=== PATIENT | female | born 1990 | race Caucasian/White ===

== ENCOUNTER 2019-05-21 17:58 | Emergency (ER) | payer BC ==
[2019-05-21] MEDS ORDERED: Sodium Chloride 0.9% 10 ML Syringe FLUSH PRN (19:30)
--- NOTE | 2019-05-21 19:47 | EDM.PDOC ---
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 Patient is approximately 8 weeks with her first . She states about 3 days ago she started having some brownish discharge that has been gradually increasing in amount and transitioning to a bright red color. She states that around 4:00 this afternoon, she had a gush of large blood clots and blood that soaked through her clothing. Patient states she was originally scheduled for a first OB appointment with Dr. Ruano on 02 June, however they have moved that up to May 25 due to her spotting. When she spoke to the clinic today to change her appointment they recommended that she come to the ER if the bleeding should increase. She has some mild cramping that she describes as similar to "light period cramps ". States that she normally has fairly significant cramping with her periods and that these cramps are not as severe . - Related Data Allergies Allergy/AdvReac Type Severity Reaction Status Date / Time No Known Allergies Allergy Verified 05/21/19 18:23 Home Meds: Home Meds Acetaminophen/oxyCODONE [Percocet 325-5 MG] 1 each PO Q4H PRN #10 tab 05/21/19 [ Rx] Past Medical History - Past Health History Medical/Surgical History: Denies Medical/Surgical History ED ROS GENERAL - Review of Systems Review Of Systems: Comprehensive ROS is negative, except as noted in HPI. ED EXAM - Physical Exam Exam: See Below Exam Limited By: No Limitations General Appearance: Alert, WD/WN, No Apparent Distress Respiratory/Chest: No Respiratory Distress, Lungs Clear, Normal Breath Sounds, No Accessory Muscle Use, Chest Non-Tender Cardiovascular: Normal Peripheral Pulses, Regular Rate, Rhythm, No Edema, No Gallop, No JVD, No Murmur, No Rub GI/Abdominal Exam: Normal Bowel Sounds, Soft, Non-Tender, No Organomegaly, No Distention, No Abnormal Bruit, No Mass, Pelvis Stable (Female) Exam: Normal External Exam, Cervical Dilatation (0.5 cm), Cervical Discharge (Clear mucous and bloody) Neurological: Alert, Oriented, CN II-XII Intact, Normal Cognition, Normal Gait, Normal Reflexes, No Motor/Sensory Deficits Psychiatric: Normal Affect, Normal Mood Skin Exam: Warm, Dry, Intact, Normal Color, No Rash Course - Vital Signs Last Recorded V/S: Last Vital Signs Temp 98.4 F 05/21/19 18:19 Pulse 62 05/21/19 18:19 Resp 18 05/21/19 18:19 BP 111/62 05/21/19 18:19 Pulse Ox 100 05/21/19 18:19 - Orders/Labs/Meds Orders: Active Orders 24 hr Category Date Time Status Pelvic Exam, Set Up [RC] ASDIRECTED Care 05/21/19 20:46 Active Peripheral IV Care [RC] . DIRECTED Care 05/21/19 19:30 Active Peripheral IV Insertion Adult [OM.PC] Stat Oth 05/21/19 19:30 Ordered Labs: Laboratory Tests 05/21/19 05/21/19 05/21/19 Range/Units 20:02 20:02 20:02 WBC 8.76 (3.98-10.04) K/mm3 RBC 3.93 L (3.98-5.22) M/mm3 Hgb 12.3 (11.2-15.7) gm/dl Hct 36.9 (34.1-44.9) % MCV 93.9 (79.4-94.8) fl MCH 31.3 (25.6-32.2) pg MCHC 33.3 (32.2-35.5) g/dl RDW Std Deviation 39.4 (36.4-46.3) fL Plt Count 264 (182-369) K/mm3 MPV 10.6 (9.4-12.3) fl Neut % (Auto) 70.9 (34.0-71.1) % Lymph % (Auto) 22.3 (19.3-51.7) % Alfalfa % (Auto) 5.0 (4.7-12.5) % Eos % (Auto) 1.4 (0.7-5.8) Baso % (Auto) 0.3 (0.1-1.2) % Neut # (Auto) 6.21 H (1.56-6.13) K/mm3 Lymph # (Auto) 1.95 (1.18-3.74) K/mm3 Alfalfa # (Auto) 0.44 H (0.24-0.36) K/mm3 Eos # (Auto) 0.12 (0.04-0.36) K/mm3 Baso # (Auto) 0.03 (0.01-0.08) K/mm3 Sodium 139 (136-145) mEq/L Potassium 3.7 (3.5-5.1) mEq/L Chloride 103 (98-107) mEq/L Carbon Dioxide 25 (21-32) mEq/L Anion Gap 14.7 (5-15) BUN 15 (7-18) mg/dL Creatinine 0.7 (0.55-1.02) mg/dL Est Cr Clr Drug Dosing 107.67 mL/min Estimated GFR (MDRD) > 60 (>60) mL/min BUN/Creatinine Ratio 21.4 H (14-18) Glucose 90 (74-106) mg/dL Calcium 9.1 (8.5-10.1) mg/dL Total Bilirubin 0.2 (0.2-1.0) mg/dL AST 14 L (15-37) U/L ALT 25 (14-59) U/L Alkaline Phosphatase 56 (46-116) U/L Total Protein 7.9 (6.4-8.2) g/dl Albumin 3.9 (3.4-5.0) g/dl Globulin 4.0 gm/dL Albumin/Globulin Ratio 1.0 (1-2) HCG, Quant 11193.0 mIU/mL Urine Color (Yellow) Urine Appearance (Clear) Urine pH (5.0-8.0) Ur Specific Goode (1.005-1.030) Urine Protein (Negative) Urine Glucose (UA) (Negative) Urine Ketones (Negative) Urine Occult Blood (Negative) Urine Nitrite (Negative) Urine Bilirubin (Negative) Urine Urobilinogen (0.2-1.0) Ur Leukocyte Esterase (Negative) Urine RBC (0-5) /hpf Urine WBC (0-5) /hpf Ur Squamous Epith Cells (0-5) /hpf Urine Bacteria (FEW) /hpf Urine Mucus (FEW) /hpf Blood Type 05/21/19 05/21/19 Range/Units 20:02 20:45 WBC (3.98-10.04) K/mm3 RBC (3.98-5.22) M/mm3 Hgb (11.2-15.7) gm/dl Hct (34.1-44.9) % MCV (79.4-94.8) fl MCH (25.6-32.2) pg MCHC (32.2-35.5) g/dl RDW Std Deviation (36.4-46.3) fL Plt Count (182-369) K/mm3 MPV (9.4-12.3) fl Neut % (Auto) (34.0-71.1) % Lymph % (Auto) (19.3-51.7) % Alfalfa % (Auto) (4.7-12.5) % Eos % (Auto) (0.7-5.8) Baso % (Auto) (0.1-1.2) % Neut # (Auto) (1.56-6.13) K/mm3 Lymph # (Auto) (1.18-3.74) K/mm3 Alfalfa # (Auto) (0.24-0.36) K/mm3 Eos # (Auto) (0.04-0.36) K/mm3 Baso # (Auto) (0.01-0.08) K/mm3 Sodium (136-145) mEq/L Potassium (3.5-5.1) mEq/L Chloride (98-107) mEq/L Carbon Dioxide (21-32) mEq/L Anion Gap (5-15) BUN (7-18) mg/dL Creatinine (0.55-1.02) mg/dL Est Cr Clr Drug Dosing mL/min Estimated GFR (MDRD) (>60) mL/min BUN/Creatinine Ratio (14-18) Glucose (74-106) mg/dL Calcium (8.5-10.1) mg/dL Total Bilirubin (0.2-1.0) mg/dL AST (15-37) U/L ALT (14-59) U/L Alkaline Phosphatase (46-116) U/L Total Protein (6.4-8.2) g/dl Albumin (3.4-5.0) g/dl Globulin gm/dL Albumin/Globulin Ratio (1-2) HCG, Quant mIU/mL Urine Color Yellow (Yellow) Urine Appearance Slt cloudy H (Clear) Urine pH 5.5 (5.0-8.0) Ur Specific Goode > or = 1.030 (1.005-1.030) Urine Protein Negative (Negative) Urine Glucose (UA) Negative (Negative) Urine Ketones Negative (Negative) Urine Occult Blood 3+ H (Negative) Urine Nitrite Negative (Negative) Urine Bilirubin Negative (Negative) Urine Urobilinogen 0.2 (0.2-1.0) Ur Leukocyte Esterase Negative (Negative) Urine RBC 40-50 H (0-5) /hpf Urine WBC 0-5 (0-5) /hpf Ur Squamous Epith Cells 5-10 H (0-5) /hpf Urine Bacteria Occasional (FEW) /hpf Urine Mucus Few (FEW) /hpf Blood Type B POSITIVE Meds: Medications Discontinued Medications Generic Name Dose Route Start Last Admin Trade Name Freq PRN Reason Stop Dose Admin Sodium Chloride 10 ml 05/21/19 19:30 Saline Flush FLUSH ASDIRECTED PRN Keep Vein Open - Re-Assessments/Exams Free Text/Narrative Re-Assessment/Exam: 05/21/19 21:59 Ultrasound showed an empty gestational sac with a small amount of blood within the endocervical canal. Findings are felt to be compatible with a nonviable . Pelvic exam on the patient did show a slightly dilated cervix with bloody/mucousy discharge from the os. Patient is B+ so RhoGam is not indicated. Discussed these findings with the patient and that she is likely miscarrying. Recommended that she take ibuprofen every 6 hours for the next couple days. I will write her prescription for Percocet that she can fill if she needs it. Educated her to return to the ER if she is saturating a pad an hour for more than 2 hours. She does have an appointment scheduled with Dr. Ruano on Saturday morning. I did recommend that she keep that as a follow-up appointment. Discharge instructions as documented. Departure - Departure Time of Disposition: 22:02 Disposition: Home, Self-Care 01 Condition: Fair Clinical Impression: Incomplete - Discharge Information *PRESCRIPTION DRUG MONITORING PROGRAM REVIEWED*: Yes *COPY OF PRESCRIPTION DRUG MONITORING REPORT IN PATIENT JACOB: No Prescriptions: Acetaminophen/oxyCODONE [Percocet 325-5 MG] 1 each PO Q4H PRN #10 tab PRN Reason: Pain Instructions: Miscarriage, [id number] Referrals: Joceline Lebron PA-C [Primary Care Provider] - Sneha Ruano MD [Physician] - Forms: ED Department Discharge Additional Instructions: You were seen in the emergency department today for vaginal bleeding and passing blood clots. Your work-up included blood work, urinalysis, and a transvaginal ultrasound. Unfortunately the findings of these tests were consistent with that of a miscarriage. As we discussed, I would recommend that you take ibuprofen 400 mg every 6 hours for the next couple days as this will help reduce the cramping as well as the bleeding. You will likely continue to bleed for the next few days and the cramping may worsen. If you find that you are saturating a pad an hour for more than 2 hours, I recommend that you return to the emergency department. A prescription for Percocet has been provided to you. You may fill this if needed for additional pain relief beyond that provided by the ibuprofen. I recommend that you keep your appointment on Saturday with Dr. Ruano for a follow-up. If you should develop any concerning symptoms over the weekend, please do not hesitate to return to the emergency department. Sepsis Event Note - Evaluation Sepsis Screening Result: No Definite Risk - Focused Exam Vital Signs: Vital Signs Temp Pulse Resp BP Pulse Ox 05/21/19 18:19 98.4 F 62 18 111/62 100 Date Exam was Performed: 05/21/19 Time Exam was Performed: 23:24 - My Orders Last 24 Hours: My Active Orders 05/21/19 19:30 Peripheral IV Care [RC] . DIRECTED Peripheral IV Insertion Adult [OM.PC] Stat 05/21/19 20:46 Pelvic Exam, Set Up [RC] ASDIRECTED - Assessment/Plan Last 24 Hours: My Active Orders 05/21/19 19:30 Peripheral IV Care [RC] . DIRECTED Peripheral IV Insertion Adult [OM.PC] Stat 05/21/19 20:46 Pelvic Exam, Set Up [RC] ASDIRECTED
--- NOTE | 2019-05-21 20:40 | US ---
First trimester obstetrical ultrasound: Multiple real-time images were obtained transvaginally. Comparison: No previous study. Findings: Empty gestational sac is seen. No yolk sac or pole is seen within this gestational sac. There is some ill-defined debris felt to be present within the sac. Blood is seen within the endocervical canal. Right and left ovaries appear within normal limits. Impression: 1. Empty gestational sac with a small amount of blood within the endocervical canal. Findings are felt compatible with nonviable . Diagnostic code #5 Study was dictated in [place] Standard Time
== END 2019-05-21 22:15 | disposition home or self-care (01) ==
LOC: JD.ED 17:58
DX: O03.4 Incomplete spontaneous abortion without complication (principal)
CPT/HCPCS: 36415; 76817; 76817-26; 80053; 81001; 84702; 85025; 86900; 86901; 99283; 99284-25

== ENCOUNTER 2020-03-23 05:09 | Inpatient (IN) | payer BC ==
[2020-03-23] MEDS ORDERED: Metoclopramide 10 MG/2 ML SDV IVPUSH ONE (05:20)
[2020-03-23] MEDS ORDERED: Sodium Chloride 0.9% 10 ML Syringe FLUSH PRN (05:20)
[2020-03-23] MEDS ORDERED: ceFAZolin 2 GM in Premix Bag 1 BAG IV ONE (05:20)
[2020-03-23] MEDS ORDERED: Citric Acid/Sodium Citrate Solution 30 ML Cup PO ONE (05:20)
[2020-03-23] MEDS ORDERED: Oxytocin/Lactated Ringers 10 UNIT/1,000 ML BAG IV SCH (05:30)
[2020-03-23] MEDS: Lactated Ringers 1,000 ML IV SCH ×2 (05:50→07:07)
--- NOTE | 2020-03-23 06:55 | PCM.PREANE ---
Preanesthetic Assessment - Procedure Proposed Procedure: Primary for Breech Presentation - Anesthesia/Transfusion/Family Hx Anesthesia History: No Prior Anesthesia Family History of Anesthesia Reaction: No Transfusion History: No Prior Transfusion(s) Intubation History: Unknown - Review of Systems General: No Symptoms Pulmonary: No Symptoms Cardiovascular: No Symptoms Gastrointestinal: No Symptoms (GERD) Neurological: No Symptoms (Scoliosis noted per patient) Other: Reports: None, Easy Bruising - Physical Assessment NPO Status Date: 03/22/20 NPO Status Time: 19:00 Vital Signs: Last Vital Signs Temp 36.3 C 03/23/20 05:31 Pulse 78 03/23/20 05:31 Resp 16 03/23/20 05:31 BP 107/59 L 03/23/20 05:31 Pulse Ox 96 03/23/20 05:31 Height: 1.65 m Weight: 79.379 kg ASA Class: 2 Mental Status: Alert & Oriented x3 Airway Class: Mallampati = 2 Dentition: Reports: Normal Dentition, Caries Thyro-Mental Finger Breadths: 3 Mouth Opening Finger Breadths: 3 ROM/Head Extension: Full Lungs: Clear to Auscultation, Normal Respiratory Effort Cardiovascular: Regular Rate, Regular Rhythm, No Murmurs - Lab Values: Laboratory Last Values WBC 10.06 K/mm3 (3.98-10.04) H 03/23/20 05:35 RBC 3.90 M/mm3 (3.98-5.22) L 03/23/20 05:35 Hgb 12.4 gm/dl (11.2-15.7) 03/23/20 05:35 Hct 37.0 % (34.1-44.9) 03/23/20 05:35 MCV 94.9 fl (79.4-94.8) H 03/23/20 05:35 MCH 31.8 pg (25.6-32.2) 03/23/20 05:35 MCHC 33.5 g/dl (32.2-35.5) 03/23/20 05:35 RDW Std Deviation 56.3 fL (36.4-46.3) H 03/23/20 05:35 Plt Count 201 K/mm3 (182-369) 03/23/20 05:35 MPV 11.3 fl (9.4-12.3) 03/23/20 05:35 Neut % (Auto) 79.3 % (34.0-71.1) H 03/23/20 05:35 Lymph % (Auto) 12.3 % (19.3-51.7) L 03/23/20 05:35 Blount % (Auto) 6.3 % (4.7-12.5) 03/23/20 05:35 Eos % (Auto) 1.2 (0.7-5.8) 03/23/20 05:35 Baso % (Auto) 0.2 % (0.1-1.2) 03/23/20 05:35 Neut # (Auto) 7.98 K/mm3 (1.56-6.13) H 03/23/20 05:35 Lymph # (Auto) 1.24 K/mm3 (1.18-3.74) 03/23/20 05:35 Blount # (Auto) 0.63 K/mm3 (0.24-0.36) H 03/23/20 05:35 Eos # (Auto) 0.12 K/mm3 (0.04-0.36) 03/23/20 05:35 Baso # (Auto) 0.02 K/mm3 (0.01-0.08) 03/23/20 05:35 SARS-CoV-2 RNA (VIVIAN) Negative (NEGATIVE) 03/23/20 05:43 Blood Type B POSITIVE 03/23/20 05:35 Gel Antibody Screen Negative 03/23/20 05:35 Above labs reviewed and noted and within acceptable ranges to proceed with scheduled procedure. 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: - SUBSTANCE USE Tobacco Use Status *Q: Never Tobacco User Recreational Drug Use History: No - HOME MEDS Home Medications: Home Meds Ferrous Sulfate [Iron] 325 mg PO DAILY 03/23/20 [History] Vits #93/Iron Fum/FA [ Formula Tablet] 1 tab PO DAILY 03/23/20 [History] - CURRENT (IN HOUSE) MEDS Current Meds: Current Medications Oxytocin/Lactated Ringer's (Pitocin In Lr 10 Units/1,000 Ml) 10 unit in 1,000 mls @ 100 mls/hr IV ASDIRECTED GUILLERMINA; Protocol Lactated Ringer's (Ringers, Lactated) 1,000 mls @ 125 mls/hr IV ASDIRECTED GUILLERMINA Last Admin: 03/23/20 05:50 Dose: 125 mls/hr Documented by: Sodium Chloride (Saline Flush) 10 ml FLUSH ASDIRECTED PRN PRN Reason: Keep Vein Open Discontinued Medications Citric Acid/Sodium Citrate (Bicitra Solution) 30 ml PO ONETIME ONE Stop: 03/23/20 05:21 Cefazolin Sodium/Dextrose 2 gm (/ Premix) 50 mls @ 100 mls/hr IV ONETIME ONE Stop: 03/23/20 05:49 Metoclopramide HCl (Reglan) 10 mg IVPUSH ONETIME ONE Stop: 03/23/20 05:21
--- NOTE | 2020-03-23 07:28 | PCM.OPNOTE ---
- General Post-Op/Procedure Note Date of Surgery/Procedure: 03/23/20 Operative Procedure(s): Primary low transverse Findings: Baby boy in a tavia breech presentation. Weight of 8 pounds 6 oz. APGARS of 8 & 8. Normal appearance of uterus, fallopian tubes, and ovaries. Pre Op Diagnosis: 39 weeks gestation. 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 Placenta discarded Fluid Replacement, Intraop: 1,000 Output, Urine Amount: 125 EBL in mLs: 700 Complications: None Condition: Good Free Text/Narrative:: The risks, benefits, indications, potential complications, and alternatives were explained to the patient and informed consent obtained. After induction of anesthesia, the patient was placed in a supine position and then draped and prepped in the usual sterile manner. A Pfannenstiel incision was made and carried down through the subcutaneous tissue to the fascia. Fascial incision was made and extended transversely. The fascia was from the underlying rectus tissue superiorly and inferiorly. The peritoneum was identified and entered. Peritoneal incision was extended longitudinally. The utero-vesical peritoneal reflection was incised transversely and the bladder flap was bluntly freed from the lower uterine segment. A low transverse uterine incision was made sharply with a scalpel and extended bluntly in a cephalocaudad direction. A baby boy was delivered from a breech presentation with APGARS as above. After the umbilical cord was clamped and cut cord blood was obtained for evaluation. The placenta was removed intact and appeared normal. The uterus was exteriorized and cleared of clots. The uterine outline, tubes and ovaries appeared normal. The uterine incision was closed with running locked sutures of 0 Vicryl. Hemostasis was obtained with a second imbricating layer of 0 Vicryl.. The uterus was then placed back into the abdomen. The infracolic gutters were cleared of blood clots. The fascia was then reapproximated with running sutures of 0 Vicryl. The subcutaneous tissue was irrigated with sterile warm normal saline, hemostasis obtained with cautery. This layer was also closed with a running 0 Vicryl. The skin was reapproximated with running Subcuticular 4-0 Monocryl sutures. Instrument, sponge, and needle counts were correct prior the abdominal closure and at the conclusion of the case.
[2020-03-23] MEDS ORDERED: Morphine PF 10 MG/10 ML SDV ONE (07:33)
[2020-03-23] MEDS ORDERED: Lactated Ringers 1,000 ML ONE (07:33)
[2020-03-23] MEDS ORDERED: Ketorolac 30 MG/ML SDV ONE (07:33)
[2020-03-23] MEDS ORDERED: Oxytocin 10 Units/1 ML SDV ONE (07:33)
[2020-03-23] MEDS ORDERED: Ondansetron 4 MG/2 ML SDV ONE (07:33)
[2020-03-23] MEDS ORDERED: ceFAZolin 1 GM Vial ONE (07:33)
[2020-03-23] MEDS ORDERED: fentaNYL 100 MCG/2 ML SDV IVPUSH PRN (07:50)
[2020-03-23] MEDS ORDERED: diphenhydrAMINE 50 MG/ML SDV IVPUSH PRN ×2 (07:50→09:30)
[2020-03-23] MEDS ORDERED: Ondansetron 4 MG/2 ML SDV IVPUSH PRN (07:50)
[2020-03-23] MEDS ORDERED: ePHEDrine 50 MG/ML SDV IVPUSH PRN (07:50)
[2020-03-23] MEDS ORDERED: HYDROmorphone 0.5 MG/0.5 ML Syringe IVPUSH PRN (07:51)
[2020-03-23] MEDS ORDERED: fentaNYL 100 MCG/2 ML SDV ONE (08:10)
--- NOTE | 2020-03-23 08:43 | PCM.POSTAN ---
POST ANESTHESIA ASSESSMENT - MENTAL STATUS Mental Status: Alert - VITAL SIGNS Vital Signs: Last Vital Signs Temp 36.3 C 03/23/20830 Pulse 78 03/23/20830 Resp 16 03/23/20830 BP 107/59 L 03/23/20830 Pulse Ox 96 03/23/20830 - RESPIRATORY Respiratory Status: Respiratory Rate WNL, Airway Patent, O2 Saturation Stable - CARDIOVASCULAR CV Status: Pulse Rate WNL, Blood Pressure Stable - GASTROINTESTINAL GI Status: No Symptoms - POST OP HYDRATION Hydration Status: Adequate & Stable
--- NOTE | 2020-03-23 09:22 | PCM48HPAN ---
Post Anesthesia Note - EVALUATION WITHIN 48HRS OF ANESTHETIC Vital Signs in Normal Range: Yes Patient Participated in Evaluation: Yes Respiratory Function Stable: Yes Airway Patent: Yes Cardiovascular Function Stable: Yes Hydration Status Stable: Yes Pain Control Satisfactory: Yes Nausea and Vomiting Control Satisfactory: Yes Mental Status Recovered: Yes Vital Signs: Last Vital Signs Temp 36.1 C 03/23/20 09:15 Pulse 70 03/23/20 09:15 Resp 13 03/23/20 09:15 BP 103/61 03/23/20 09:15 Pulse Ox 96 03/23/20 09:15
[2020-03-23] MEDS ORDERED: Dextrose 5%-Lactated Ringers 1,000 ML IV SCH (09:30)
[2020-03-23] MEDS ORDERED: Acetaminophen/oxyCODONE 325-5 MG Tab PO PRN (09:30)
[2020-03-23] MEDS: Ketorolac 30 MG/ML SDV IVPUSH SCH ×2 (14:12→21:11)
[2020-03-24] MEDS: Ketorolac 30 MG/ML SDV IVPUSH SCH (01:58)
[2020-03-24] MEDS: Acetaminophen/oxyCODONE 325-5 MG Tab PO PRN ×4 (08:01→21:30)
--- NOTE | 2020-03-24 09:21 | PCM48HPAN ---
Post Anesthesia Note - EVALUATION WITHIN 48HRS OF ANESTHETIC Vital Signs in Normal Range: Yes Patient Participated in Evaluation: Yes Respiratory Function Stable: Yes Airway Patent: Yes Cardiovascular Function Stable: Yes Hydration Status Stable: Yes Pain Control Satisfactory: Yes Nausea and Vomiting Control Satisfactory: Yes Mental Status Recovered: Yes Vital Signs: Last Vital Signs Temp 36.3 C 03/24/20 06:00 Pulse 73 03/24/20 06:00 Resp 15 03/24/20 06:00 BP 109/67 03/24/20 06:00 Pulse Ox 96 03/24/20 06:00
[2020-03-24] MEDS: Docusate Sodium 100 MG Cap PO PRN (10:27)
[2020-03-24] MEDS: Ibuprofen 600 MG Tab PO PRN ×2 (10:28→18:27)
[2020-03-24] MEDS ORDERED: valACYclovir 500 MG Tab PO ONE (21:38)
[2020-03-25] MEDS: Ibuprofen 600 MG Tab PO PRN ×2 (00:13→07:03)
[2020-03-25] MEDS: Acetaminophen/oxyCODONE 325-5 MG Tab PO PRN ×2 (03:55→10:05)
[2020-03-25] MEDS: Docusate Sodium 100 MG Cap PO PRN (07:02)
--- NOTE | 2020-03-25 07:49 | PCM.DCSUM1 ---
Discharge Summary - Hospital Course Brief History: Admitted for [facility] for breech. Uncomplicated course. Diagnosis: Stroke: No - Discharge Data Discharge Date: 03/25/20 Discharge Disposition: Home, Self-Care 01 Condition: Good - Referral to Home Health Primary Care Physician: PCP Unknown - Patient Summary/Data Operative Procedure(s) Performed: Primary low transverse - Patient Instructions Diet: Usual Diet as Tolerated Activity: No Strenuous Activities Activity, Other: pelvic rest Driving: Do Not Drive - Discharge Plan *PRESCRIPTION DRUG MONITORING PROGRAM REVIEWED*: No *COPY OF PRESCRIPTION DRUG MONITORING REPORT IN PATIENT JACOB: No Home Medications: Home Meds Ferrous Sulfate [Iron] 325 mg PO DAILY 03/23/20 [History] Vits #93/Iron Fum/FA [ Formula Tablet] 1 tab PO DAILY 03/23/20 [History] Referrals: Sneha Ruano MD [Physician] - (2 weeks) - Discharge Summary/Plan Comment DC Time >30 min.: No - General Info Date of Service: 03/25/20 Functional Status: Reports: Pain Controlled - Review of Systems General: Reports: No Symptoms HEENT: Reports: No Symptoms Pulmonary: Reports: No Symptoms Cardiovascular: Reports: No Symptoms Gastrointestinal: Reports: No Symptoms Genitourinary: Reports: No Symptoms Musculoskeletal: Reports: No Symptoms Skin: Reports: No Symptoms Neurological: Reports: No Symptoms Psychiatric: Reports: No Symptoms - Patient Data Vitals - Most Recent: Last Vital Signs Temp 36.6 C 03/25/20 04:01 Pulse 74 03/25/20 04:01 Resp 14 03/25/20 04:01 BP 117/51 L 03/25/20 04:01 Pulse Ox 96 03/25/20 04:01 Weight - Most Recent: 79.379 kg I&O - Last 24 hours: Intake & Output 03/24/20 03/25/20 03/25/20 22:59 06:59 14:59 Intake Total 500 Balance 500 Med Orders - Current: Current Medications Diphenhydramine HCl (Benadryl) 25 mg IVPUSH Q6H PRN PRN Reason: pruritis Diphenhydramine HCl (Benadryl) 25 mg IVPUSH Q6H PRN PRN Reason: Itching or Nausea Docusate Sodium (Colace) 100 mg PO Q12H PRN PRN Reason: Constipation Last Admin: 03/25/20 07:02 Dose: 100 mg Documented by: Ephedrine Sulfate (Ephedrine Sulfate) 5 mg IVPUSH ASDIRECTED PRN PRN Reason: Hypotension Fentanyl (Sublimaze) 50 mcg IVPUSH Q5M PRN PRN Reason: Pain Hydromorphone HCl (Dilaudid) 0.5 mg IVPUSH ONETIME PRN PRN Reason: Pain Ibuprofen (Motrin) 600 mg PO Q6H PRN PRN Reason: mild pain or fever Last Admin: 03/25/20 07:03 Dose: 600 mg Documented by: Ondansetron HCl (Zofran) 4 mg IVPUSH ONETIME PRN PRN Reason: Nausea/Vomiting Oxycodone/Acetaminophen (Percocet 325-5 Mg) 1 tab PO Q4H PRN PRN Reason: Pain (moderate 4-6) Last Admin: 03/25/20 03:55 Dose: 1 tab Documented by: Oxycodone/Acetaminophen (Percocet 325-5 Mg) 2 tab PO Q4H PRN PRN Reason: Pain (severe 7-10) Discontinued Medications Cefazolin Sodium (Ancef) Confirm Administered Dose 2 gm .ROUTE .STK-MED ONE Stop: 03/23/20 07:34 Citric Acid/Sodium Citrate (Bicitra Solution) 30 ml PO ONETIME ONE Stop: 03/23/20 05:21 Last Admin: 03/23/20 07:07 Dose: 30 ml Documented by: Fentanyl (Sublimaze) Confirm Administered Dose 100 mcg .ROUTE .STK-MED ONE Stop: 03/23/20 08:11 Cefazolin Sodium/Dextrose 2 gm (/ Premix) 50 mls @ 100 mls/hr IV ONETIME ONE Stop: 03/23/20 05:49 Oxytocin/Lactated Ringer's (Pitocin In Lr 10 Units/1,000 Ml) 10 unit in 1,000 mls @ 100 mls/hr IV ASDIRECTED GUILLERMINA; Protocol Lactated Ringer's (Ringers, Lactated) 1,000 mls @ 125 mls/hr IV ASDIRECTED GUILLERMINA Last Admin: 03/23/20 07:07 Dose: 125 mls/hr Documented by: Lactated Ringer's (Ringers, Lactated) Confirm Administered Dose 1,000 mls @ as directed .ROUTE .STK-MED ONE Stop: 03/23/20 07:34 Dextrose/Lactated Ringer's (Dextrose 5%-Lactated Ringers) 1,000 mls @ 125 mls/hr IV ASDIRECTED GUILLERMINA Stop: 03/23/20 17:29 Last Admin: 03/23/20 10:24 Dose: 125 mls/hr Documented by: Ketorolac Tromethamine (Toradol) Confirm Administered Dose 30 mg .ROUTE .STK-MED ONE Stop: 03/23/20 07:34 Ketorolac Tromethamine (Toradol) 30 mg IVPUSH Q6H [facility] Stop: 03/24/20 02:16 Last Admin: 03/24/20 01:58 Dose: 30 mg Documented by: Metoclopramide HCl (Reglan) 10 mg IVPUSH ONETIME ONE Stop: 03/23/20 05:21 Last Admin: 03/23/20 07:07 Dose: 10 mg Documented by: Miscellaneous Medication (Phenylephrine 1 Mg/10 Ml-Ns) Confirm Administered Dose 1 mg .ROUTE .STK-MED ONE Stop: 03/23/20 07:34 Miscellaneous Medication (Phenylephrine 1 Mg/10 Ml-Ns) 1 mg IVPUSH ONETIME ONE Stop: 03/23/20 07:51 Last Admin: 03/23/20 14:44 Dose: Not Given Documented by: Morphine Sulfate (Duramorph Pf) Confirm Administered Dose 10 mg .ROUTE .STK-MED ONE Stop: 03/23/20 07:34 Ondansetron HCl (Zofran) Confirm Administered Dose 4 mg .ROUTE .STK-MED ONE Stop: 03/23/20 07:34 Oxytocin (Pitocin) Confirm Administered Dose 10 unit .ROUTE .STK-MED ONE Stop: 03/23/20 07:34 Sodium Chloride (Saline Flush) 10 ml FLUSH ASDIRECTED PRN PRN Reason: Keep Vein Open Valacyclovir HCl (Valtrex) 2,000 mg PO ONETIME ONE Stop: 03/24/20 21:39 Last Admin: 03/25/20 00:14 Dose: 2,000 mg Documented by: - Exam General: Reports: Alert, Oriented HEENT: Reports: Pupils Equal, Pupils Reactive, EOMI, Mucous Membr. Moist/[place] Neck: Reports: Supple Lungs: Reports: Clear to Auscultation, Normal Respiratory Effort Cardiovascular: Reports: Regular Rate, Regular Rhythm GI/Abdominal Exam: Normal Bowel Sounds, Soft, Non-Tender, No Organomegaly, No Distention, No Abnormal Bruit, No Mass, Pelvis Stable Rectal (Female) Exam: Normal Exam, Normal Rectal Tone Back Exam: Reports: Normal Inspection, Full Range of Motion Extremities: Normal Inspection, Normal Range of Motion, Non-Tender, No Pedal Edema, Normal Capillary Refill Skin: Reports: Warm, Dry, Intact Wound/Incisions: Reports: Healing Well Neurological: Reports: No New Focal Deficit Psy/Mental Status: Reports: Alert, Normal Affect, Normal Mood
== END 2020-03-25 11:45 | disposition home or self-care (01) | DRG 540 ==
LOC: JD.OB 05:09
PROVIDERS: ADMIT Obstetrics & Gynecology; ATTEND Obstetrics & Gynecology
PROC: 10D00Z1 Extraction of Products of Conception, Low, Open Approach (ICD-10-PCS; principal; 2020-03-23)
DX: O32.1XX0 Maternal care for breech presentation, not applicable or unspecified (principal); Z3A.39 39 weeks gestation of pregnancy; Z37.0 Single live birth; Z20.828 Contact with and (suspected) exposure to other viral communicable diseases
CPT/HCPCS: 01961; 36415; 59025; 85025; 85027; 86592; 86850; 86900; 86901; 94762; A9270-GY; J0690; J1885; J2270; J2370; J2405; J2590; J2765; J3010; J7120; J7121; U0002

== ENCOUNTER 2022-01-23 01:42 | Inpatient (IN) | payer BC ==
[~2022-01-23 01:42] MED LIST: Lactated Ringers 1,000 ML IV SCH; Lidocaine 1%/Sod Bicarbonate in NS 8.4% 1 ML Syringe IDERM PRN; Sodium Chloride 0.9% 10 ML Syringe FLUSH PRN
[2022-01-23] MEDS ORDERED: Oxytocin/Lactated Ringers 10 UNIT/1,000 ML BAG IV SCH (02:45)
[2022-01-23] MEDS ORDERED: Lactated Ringers 1,000 ML IV SCH (02:45)
[2022-01-23] MEDS: Lactated Ringers 1,000 ML IV SCH ×2 (06:02→07:14)
[2022-01-23] MEDS ORDERED: Metoclopramide 10 MG/2 ML SDV IVPUSH ONE (06:30)
[2022-01-23] MEDS ORDERED: Citric Acid/Sodium Citrate Solution 30 ML Cup PO ONE (06:30)
[2022-01-23] MEDS ORDERED: ceFAZolin 2 GM in Sodium Chloride 0.9% 50 ML IV ONE (06:30)
[2022-01-23] MEDS ORDERED: fentaNYL 100 MCG/2 ML SDV ONE (07:03)
[2022-01-23] MEDS ORDERED: Morphine PF 10 MG/10 ML SDV ONE (07:04)
[2022-01-23] MEDS ORDERED: ceFAZolin 2 GM Vial ONE (07:08)
[2022-01-23] MEDS ORDERED: Ketorolac 30 MG/ML SDV ONE (07:17)
[2022-01-23] MEDS ORDERED: Bupivacaine 0.75%/D5W 2 ML Amp ONE (07:17)
[2022-01-23] MEDS ORDERED: Ondansetron 4 MG/2 ML SDV ONE (07:17)
[2022-01-23] MEDS: Sodium Chloride 0.9% 10 ML Syringe FLUSH SCH ×2 (07:21→19:25)
[2022-01-23] MEDS ORDERED: fentaNYL 100 MCG/2 ML SDV IVPUSH PRN (08:03)
[2022-01-23] MEDS ORDERED: Ondansetron 4 MG/2 ML SDV IVPUSH PRN (08:03)
[2022-01-23] MEDS ORDERED: diphenhydrAMINE 50 MG/ML SDV IVPUSH PRN (08:03)
[2022-01-23] MEDS ORDERED: Oxytocin 10 Units/1 ML SDV ONE (08:06)
[2022-01-23] MEDS ORDERED: Lactated Ringers 1,000 ML ONE (08:11)
[2022-01-23] MEDS ORDERED: Dexmedetomidine 200 MCG/2 ML SDV ONE (08:25)
[2022-01-23] MEDS ORDERED: Witch Hazel Medicated Pads 40/Jar TOP PRN (09:44)
[2022-01-23] MEDS ORDERED: Benzocaine/Menthol 20%-0.5% Spray 78 GM Cannister TOP PRN (09:44)
[2022-01-23] MEDS ORDERED: Dextrose 5%-Lactated Ringers 1,000 ML IV SCH (10:00)
[2022-01-23] MEDS: Ketorolac 30 MG/ML SDV IVPUSH SCH ×2 (15:12→19:59)
[2022-01-24] MEDS: Ketorolac 30 MG/ML SDV IVPUSH SCH (01:55)
[2022-01-24] MEDS: Acetaminophen/oxyCODONE 325-5 MG Tab PO PRN ×6 (03:58→22:19)
[2022-01-24] MEDS: Ibuprofen 600 MG Tab PO PRN ×2 (14:55→21:08)
[2022-01-24] MEDS: Docusate Sodium 100 MG Cap PO PRN (22:21)
[2022-01-25] MEDS: Ibuprofen 600 MG Tab PO PRN ×2 (03:26→09:28)
[2022-01-25] MEDS: Acetaminophen/oxyCODONE 325-5 MG Tab PO PRN (06:02)
[2022-01-25] MEDS: Docusate Sodium 100 MG Cap PO PRN (12:05)
== END 2022-01-25 12:09 | disposition home or self-care (01) | DRG 540 ==
LOC: JD.OB 05:20
PROVIDERS: ADMIT Obstetrics & Gynecology; ATTEND Obstetrics & Gynecology
PROC: 10D00Z1 Extraction of Products of Conception, Low, Open Approach (ICD-10-PCS; principal; 2022-01-23)
DX: O34.211 Maternal care for low transverse scar from previous cesarean delivery (principal); Z37.0 Single live birth; Z3A.39 39 weeks gestation of pregnancy
CPT/HCPCS: 01961; 36415; 59025; 85025; 85027; 86592; 86850; 86900; 86901; A9270-GY; J0690; J1885; J2274; J2405; J2590; J2765; J3010; J7120; J7121